=== PATIENT | male | born 1980 | race Caucasian/White ===

== ENCOUNTER 2018-03-01 16:17 | Emergency (ER) | payer SELFPAY ==
[2018-03-01 16:21] VITALS: BP 133/65; PULSE 81; TEMP 98.1; BMI 25.5
[2018-03-01] MEDS ORDERED: IBUPROFEN 400 MG TABLET (FP) PO ONE ×2 (16:21→16:44)
--- NOTE | 2018-03-01 16:21 | PDOC ---
Rapid Medical Evaluation Chief Complaint: Toothache Medical Evaluation: I have performed a brief in-person evaluation of this patient. The patient presents with a chief complaint of: c/o L lower toothache x 3 days; denies taking any meds for pain Pertinent physical exam findings: cracked tooth #18, no redness or swelling I have ordered the following: Jose The patient will proceed to the ED for further evaluation. 03/01/18 16:20
--- NOTE | 2018-03-01 16:52 | PDOC ---
History of Present Illness - General Chief Complaint: Toothache Stated Complaint: TOOTHACHE Time Seen by Provider: 03/01/18 16:48 - History of Present Illness Initial Comments: 03/01/18 16:51 37-year-old male without comorbidities or systemic symptoms presents for toothache 3 days Past History - Past Medical History Allergies/Adverse Reactions: Allergies Allergy/AdvReac Type Severity Reaction Status Date / Time No Known Allergies Allergy Verified 03/01/18 16:21 Home Medications: Ambulatory Orders Amoxicillin - [Amoxicillin 875mg Tablet -] 875 mg PO BID #14 tab 03/01/18 Ibuprofen [Motrin -] 600 mg PO TID #30 tablet 03/01/18 COPD: No - Suicide/Smoking/Psychosocial Hx Smoking History: Current every day smoker Number of Cigarettes Smoked Daily: 4 Information on smoking cessation initiated: No Hx Alcohol Use: No Drug/Substance Use Hx: No Review of Systems - Review of Systems HEENTM: Yes: Dental Problems *Physical Exam - Vital Signs Last Vital Signs Temp Pulse Resp BP Pulse Ox 98.1 F 81 18 133/65 100 03/01/18 16:19 03/01/18 16:19 03/01/18 16:19 03/01/18 16:19 03/01/18 16:19 - Physical Exam Comments: 03/01/18 16:51 HEAD: NC/AT EYES: Conjuntiva clear Ears: Canals and TM's normal NOSE: No d/c THROAT: Moist mucous membrances, oral pharanx clear, uvula midline; there is a large cavity in the left lower molar NECK: Supple without adenopathy CARDIAC: S1 S2 LUNGS: CTA Full and Equal breath sounds ABDOMEN: Soft NT ND MS: Full ROM in all joints without edema NEUROLOGIC: No gross sensory or motor deficits, NVID SKIN: Normal color and temperature no lesions or rashes Moderate Sedation - Procedure Monitoring Vital Signs: Procedure Monitoring Vital Signs Temperature 98.1 F 03/01/18 16:19 Pulse Rate 81 03/01/18 16:19 Respiratory Rate 18 03/01/18 16:19 Blood Pressure 133/65 03/01/18 16:19 O2 Sat by Pulse Oximetry (%) 100 03/01/18 16:19 ED Treatment Course - Medications Given in the ED: ED Medications Discontinued Medications Generic Name Dose Route Start Last Admin Trade Name Freq PRN Reason Stop Dose Admin Ibuprofen 800 mg 03/01/18 16:21 03/01/18 16:45 Motrin - PO 03/01/18 16:22 800 mg ONCE ONE Administration *DC/Admit/Observation/Transfer Diagnosis at time of Disposition: Tooth decay - Discharge Dispostion Disposition: HOME Condition at time of disposition: Stable Decision to Admit order: No - Prescriptions Prescriptions: Amoxicillin - [Amoxicillin 875mg Tablet -] 875 mg PO BID #14 tab Ibuprofen [Motrin -] 600 mg PO TID #30 tablet - Referrals Referrals: [facility] [Outside] - Patient Instructions Printed Discharge Instructions: DI for Tooth Decay Additional Instructions: Please take the antibiotics and Motrin as directed. Motrin is one tablet 3 times a day with food. Discontinue the medication if it bothers her stomach. He may add Tylenol to that if you need to. Follow-up with urgent care dental for further evaluation and treatment options. He should follow up today or tomorrow return to the emergency room should symptoms worsen or go unresolved. - Post Discharge Activity
== END 2018-03-01 16:54 | disposition home or self-care (01) ==
LOC: JERFT 16:17
DX: K02.9 Dental caries, unspecified (principal); K03.81 Cracked tooth
CPT/HCPCS: 99281-25

== ENCOUNTER → 2018-10-02 | Emergency (ER) | payer SELFPAY, OTHER | LOC: JERBED 10-03 00:58 → JER 19:15 ==

== ENCOUNTER 2024-07-22 13:59 | Emergency (ER) | payer OTHER ==
[2024-07-22 14:05] VITALS: BP 132/94; PULSE 86; RESP 18; TEMP 98.6; BMI 25.1
[2024-07-22 15:26] LABS: INR 1.24 (0.83-1.09); PROTHROMBIN TIME (PATIENT) 13.5 SEC (9.7-13.0)
[2024-07-22 15:30] LABS: ABSOLUTE IMMATURE GRANULOCYTES 0.02 x10^3/uL (0.0-0.031); BASOPHILS # 0.01 x10^3/uL (0.01-0.08); EOSINOPHIL % 1.1 % (0.8-7.0); EOSINOPHILS # 0.07 x10^3/uL (0.04-0.54); HEMOGLOBIN 15.1 g/dL (13.7-17.5); MCHC 34.3 g/dl (32.3-36.5); MEAN CELL VOLUME 86.8 fl (79.0-92.2); MEAN PLT VOLUME 10.5 fl (9.4-12.4); MONOCYTE # 0.75 x10^3/uL (0.30-0.82); MONOCYTE % 11.3 % (5.3-12.2); PLATELET COUNT 182 x10^3/uL (163-337); RDW 12.4 % (12.1-15.9)
[2024-07-22 15:39] LABS: ALBUMIN 3.8 g/dl (3.4-5.0); BLOOD UREA NITROGEN 18.3 mg/dL (7-18); CALCIUM 9.3 mg/dL (8.5-10.1); MAGNESIUM 2.1 mg/dL (1.8-2.4)
[2024-07-22 15:42] LABS: CREATININE 1.1 mg/dL (0.55-1.3)
[2024-07-22 15:44] LABS: BILIRUBIN,TOTAL 0.7 mg/dL (0.2-1); TOT PROT 6.5 g/dl (6.4-8.2)
[2024-07-22] MEDS ORDERED: FAMOTIDINE 20 MG/50 ML IVPB 20 MG/50 ML MG IVPB ONE (15:56)
[2024-07-22] MEDS ORDERED: ACETAMINOPHEN INJECTION 100 ML ONE (15:56)
[2024-07-22] MEDS ORDERED: ONDANSETRON 4 MG/2 ML VIAL ONE (15:56)
[2024-07-22] MEDS: SODIUM CHLORIDE 1,000 ML IV STA (16:07)
[2024-07-22] MEDS: ONDANSETRON 4 MG/2 ML VIAL IVPUSH ONE (16:14)
[2024-07-22] MEDS: FAMOTIDINE 20 MG/50 ML IVPB 20 MG/50 ML MG IVPB ONE (16:14)
[2024-07-22] MEDS: ACETAMINOPHEN 1000 MG/100 ML BAG IVPB ONE (16:14)
[2024-07-22 16:37] LABS: HCV DIAGNOSTIC IN-HOUSE W/RFLX NON-REACTIVE (NONREACTIVE); HIV INTERPRETATION NEGATIVE (NEGATIVE)
== END 2024-07-22 18:14 | disposition home or self-care (01) ==
LOC: JER 13:59
PROC: 3E033GC Introduction of Other Therapeutic Substance into Peripheral Vein, Percutaneous Approach (ICD-10-PCS; principal; 2024-07-22)
PROC: 3E033NZ Introduction of Analgesics, Hypnotics, Sedatives into Peripheral Vein, Percutaneous Approach (ICD-10-PCS; 2024-07-22)
PROC: 3E033GC Introduction of Other Therapeutic Substance into Peripheral Vein, Percutaneous Approach (ICD-10-PCS; 2024-07-22)
DX: R07.2 Precordial pain (principal); R51.9 Headache, unspecified; R11.2 Nausea with vomiting, unspecified; R05.9 Cough, unspecified; R10.13 Epigastric pain; W01.198A Fall on same level from slipping, tripping and stumbling with subsequent striking against other object, initial encounter
CPT/HCPCS: 0241U-QW; 36415; 71046-TC-FY; 76705-TC; 80053; 83690; 83735; 84484; 85025; 85610; 85730; 86803; 87389; 93005; 93010; 99285-25; J0131